=== PATIENT | male | born 1990 | race Caucasian/White ===

== ENCOUNTER 2018-05-06 12:12 | Emergency (ER) | payer OTHER ==
[~2018-05-06] VITALS: Ht 190.5 cm; Wt 136.1 kg
[2018-05-06 12:12] VITALS: BP 134/59
[~2018-05-06 12:12] MED LIST: AMOXICILLIN500 MG PO; HYDROCODONE BIT1 T11 PO; [UNRECOGNIZED DRUG - OTHER]
[2018-05-06] MEDS ORDERED: ROBAXIN500 M1 PO (14:52)
== END 2018-05-06 15:03 | disposition home or self-care (01) ==
LOC: ED 12:12
DX: S13.8XXA Sprain of joints and ligaments of other parts of neck, initial encounter (principal); S09.90XA Unspecified injury of head, initial encounter; W01.0XXA Fall on same level from slipping, tripping and stumbling without subsequent striking against object, initial encounter; Y93.01 Activity, walking, marching and hiking; Y92.099 Unspecified place in other non-institutional residence as the place of occurrence of the external cause; Y99.9 Unspecified external cause status

== ENCOUNTER 2019-10-05 18:36 | Emergency (ER) | payer SELFPAY ==
[~2019-10-05] VITALS: Ht 190.5 cm; Wt 124.7 kg
[~2019-10-05 18:36] MED LIST changes: +ROBAXIN500 M1 PO; +TESSALON PERLE100 M1 PO; +ZITHROMAX250 MG PO
[2019-10-05 18:37] VITALS: BP 152/98
[2019-10-05] MEDS ORDERED: PREDNISONE20 M1 PO (19:53)
[2019-10-05] MEDS ORDERED: ZITHROMAX250 MG PO (19:53)
== END 2019-10-05 20:32 | disposition home or self-care (01) ==
LOC: ED 18:36
DX: J40 Bronchitis, not specified as acute or chronic (principal); F17.200 Nicotine dependence, unspecified, uncomplicated

== ENCOUNTER 2020-04-04 16:51 | Emergency (ER) | payer SELFPAY ==
[~2020-04-04 16:51] MED LIST changes: +PREDNISONE20 M1 PO
[2020-04-04 16:55] VITALS: BP 128/90
[2020-04-04] MEDS ORDERED: TRAMADOL HCL50 MG PO (18:48)
== END 2020-04-04 19:15 | disposition home or self-care (01) ==
LOC: ED 16:51
DX: S62.334A Displaced fracture of neck of fourth metacarpal bone, right hand, initial encounter for closed fracture (principal); F17.200 Nicotine dependence, unspecified, uncomplicated; Z79.899 Other long term (current) drug therapy; W22.8XXA Striking against or struck by other objects, initial encounter; Y93.89 Activity, other specified; Y92.89 Other specified places as the place of occurrence of the external cause; Y99.8 Other external cause status

== ENCOUNTER 2021-07-18 14:13 | Emergency (ER) | payer SELFPAY ==
[~2021-07-18 14:13] MED LIST changes: +TRAMADOL HCL50 MG PO
[2021-07-18 14:21] VITALS: BP 152/88
[2021-07-18 15:06] LABS: BASO % 0.5 % (0.0-1.0); EOS # 0.5 10*3/uL (0.0-0.4); EOS % 6.2 % (1.0-4.0); HEMATOCRIT 46.9 % (42.0-52.0); LYMPH # 2.2 10*3/uL (1.3-4.4); LYMPH % 27.2 % (27.0-41.0); MEAN CELL VOLUME 89.5 fl (80.0-94.0); MEAN CORPUSCULAR HGB 29.2 pg (27.0-31.0); MEAN CORPUSCULAR HGB CONC 32.6 g/dl (33.0-37.0); MEAN PLATELET VOLUME 9.7 fl (9.6-12.3); MONO # 0.7 10*3/uL (0.1-1.0); MONO % 8.7 % (3.0-9.0); NEUT # 4.6 10*3/uL (2.3-7.9); NEUT % 57.3 % (47.0-73.0); PLATELET COUNT AUTOMATED 229 10*3/uL (130-400); RED BLOOD COUNT 5.24 10*6/uL (4.50-5.90); RED CELL DISTRI WIDTH 13.4 % (0-14.5); WHITE BLOOD COUNT 8.1 10*3/uL (4.8-10.8)
[2021-07-18 15:22] LABS: ALBUMIN 3.6 gm/dl (3.1-4.5); ALKALINE PHOSPHATASE 76 U/L (45-117); BUN 12 mg/dl (7-24); CHLORIDE 110 mmol/L (98-107); CREATININE 0.89 mg/dL (0.70-1.30); LIPASE 65 U/L (73-393); POTASSIUM 3.9 mmol/L (3.5-5.1); SGOT/AST 53 IU/L (3-35); SGPT/ALT 58 U/L (12-78); SODIUM 141 mmol/L (136-145); TOTAL PROTEIN 6.9 gm/dL (6.4-8.2)
== END 2021-07-18 18:30 | disposition home or self-care (01) ==
LOC: ED 14:13
PROVIDERS: Emergency Medicine
DX: K42.9 Umbilical hernia without obstruction or gangrene (principal); Z79.2 Long term (current) use of antibiotics; Z79.899 Other long term (current) drug therapy

== ENCOUNTER 2023-09-23 09:19 | Emergency (ER) | payer OTHER ==
[~2023-09-23] VITALS: Wt 145.1 kg
[2023-09-23 09:26] VITALS: BP 127/86
[2023-09-23] MEDS ORDERED: PROVENTIL HFA6.7 GM INH (10:03)
[2023-09-23] MEDS ORDERED: PREDNISONE20 M1 PO (10:03)
[2023-09-23] MEDS ORDERED: VIBRAMYCIN100 MG PO (10:03)
== END 2023-09-23 10:48 | disposition home or self-care (01) ==
LOC: ED 09:19
DX: J40 Bronchitis, not specified as acute or chronic (principal); R06.2 Wheezing; F17.290 Nicotine dependence, other tobacco product, uncomplicated